=== PATIENT | female | born 1995 | race African-American/Black ===

== ENCOUNTER 2017-01-02 16:55 | Emergency (ER) | payer OTHER | END 2017-01-02 17:24 | disposition home or self-care (01) | LOC: FER 16:55 | DX: M79.605 Pain in left leg (principal); M79.604 Pain in right leg; G89.29 Other chronic pain; J44.9 Chronic obstructive pulmonary disease, unspecified; K21.9 Gastro-esophageal reflux disease without esophagitis; G62.9 Polyneuropathy, unspecified; Z88.0 Allergy status to penicillin; Z88.1 Allergy status to other antibiotic agents; Z91.040 Latex allergy status; Z89.612 Acquired absence of left leg above knee; Z89.611 Acquired absence of right leg above knee | CPT/HCPCS: J1170 ==

== ENCOUNTER 2021-04-22 10:52 | Emergency (ER) | payer MEDICARE ==
[~2021-04-22 10:52] MED LIST: ATARAX25 MG PO; BACTRIM DS TAB1 EACH PO; CRESTOR10 MG PO; KEFLEX500 MG PO; LEVAQUIN500 MG PO; LYRICA 50MG CAP50 MG PO; MEDROL 4MG DOSEP4 MG PO; MINIPRESS1 MG PO; ROZEREM8 MG PO; SINGULAIR10 MG PO; SMZ/TMP; SYNTHROID25 MCG PO; VENTOLIN HFA IN18 GM INH; ZOFRAN4 MG PO; ZOLOFT50 MG PO; ZPAK PO; [UNRECOGNIZED DRUG - OTHER]
== END 2021-04-22 12:13 | disposition home or self-care (01) ==
LOC: FER 10:52
DX: S06.0X9A Concussion with loss of consciousness of unspecified duration, initial encounter (principal); I10 Essential (primary) hypertension; F17.210 Nicotine dependence, cigarettes, uncomplicated; W06.XXXA Fall from bed, initial encounter; Y92.009 Unspecified place in unspecified non-institutional (private) residence as the place of occurrence of the external cause
CPT/HCPCS: 70450; 72125; 96372; J0780; J1885

== ENCOUNTER 2021-07-03 13:19 | Emergency (ER) | payer OTHER, MEDICARE ==
[2021-07-03 14:31] LABS: BASOPHIL 1.2 % (0-2); EOSINOPHIL 2.5 % (0-5); HCT 41.7 % (37.0-47.0); HGB 14.3 g/dl (12.5-16.0); LYMPHOCYTE 27.6 % (15-48); MCH 29.5 pg (25.0-31.0); MCHC 34.3 g/dL (32.0-36.0); MCV 86.2 fL (78.0-100.0); MONOCYTE 11.4 % (0-12); MPV 9.9 fL (6.0-9.5); NEUTROPHIL 56.4 % (41-80); NRBC 0; PLT 317 K/uL (150-400); RBC 4.84 M/uL (4.20-5.40); RDW 16.2 % (11.5-14.0); WBC 6.9 K/uL (4.0-10.5)
[2021-07-03 14:43] LABS: ALBUMIN 3.2 g/dL (3.4-5.0); BILIRUBIN - TOTAL 0.3 mg/dL (0.2-1.0); BUN/CREAT RATIO (CALC) 13.3 RATIO; CREATININE 1.05 mg/dL (0.51-0.95); GLOBULIN (CALCULATION) 3.6 g/dL; POTASSIUM 4.6 mmol/L (3.5-5.1); TOTAL PROTEIN 6.8 g/dL (6.4-8.2)
[2021-07-03 15:31] LABS: BILIRUBIN NEGATIVE (NEGATIVE); BLOOD NEGATIVE Ery/uL (NEGATIVE); CLARITY CLEAR (CLEAR); COLOR YELLOW (YELLOW); GLUCOSE (U) NORMAL (NORMAL); LEUKOCYTES NEGATIVE Leu/uL (NEGATIVE); NITRITE NEGATIVE (NEGATIVE); PROTEIN NEGATIVE (NEGATIVE); SPECIFIC GRAVITY 1.015 (1.001-1.030); UROBILINOGEN 0.2 mg/dL (0.2-1.0); pH 7.5 (5.0-9.0)
[2021-07-03 18:17] LABS: CORONAVIRUS 2019 SARS-COV-2 NEGATIVE (NEGATIVE); INFLUENZA A NAA NEGATIVE (NEGATIVE)
[2021-07-03] MEDS ORDERED: MEDROL 4MG DOSEP4 MG PO (18:27)
[2021-07-03] MEDS ORDERED: AZITHROMYCIN250 MG PO (18:27)
[2021-07-03] MEDS ORDERED: ZOFRAN4 M1 PO (18:27)
== END 2021-07-03 18:59 | disposition home or self-care (01) ==
LOC: FER 13:19
PROVIDERS: Nurse Practitioner Family
DX: R10.84 Generalized abdominal pain (principal); R11.2 Nausea with vomiting, unspecified; J90 Pleural effusion, not elsewhere classified; Z20.822 Contact with and (suspected) exposure to COVID-19; F17.210 Nicotine dependence, cigarettes, uncomplicated; Z88.0 Allergy status to penicillin; Z91.040 Latex allergy status
CPT/HCPCS: 36415; 80053; 81003; 85025; J2270; J2405; J2930; J7030; U0002

== ENCOUNTER 2021-10-05 09:09 | Emergency (ER) | payer MEDICARE ==
[~2021-10-05 09:09] MED LIST changes: +AZITHROMYCIN250 MG PO; +ZOFRAN4 M1 PO
[2021-10-05 10:16] LABS: CORONAVIRUS 2019 SARS-COV-2 NEGATIVE (NEGATIVE); INFLUENZA A NAA NEGATIVE (NEGATIVE)
[2021-10-05] MEDS ORDERED: AZITHROMYCIN250 MG PO (10:27)
[2021-10-05] MEDS ORDERED: PREDNISONE 20MG20 MG PO (10:27)
== END 2021-10-05 10:45 | disposition home or self-care (01) ==
LOC: FER 09:09
PROVIDERS: Emergency Medicine
DX: J45.901 Unspecified asthma with (acute) exacerbation (principal); I10 Essential (primary) hypertension; F17.200 Nicotine dependence, unspecified, uncomplicated; Z20.822 Contact with and (suspected) exposure to COVID-19; Z88.0 Allergy status to penicillin; Z88.1 Allergy status to other antibiotic agents; Z91.040 Latex allergy status
CPT/HCPCS: 71045; 99283; U0002

== ENCOUNTER 2021-11-20 12:42 | Emergency (ER) | payer SELFPAY ==
[~2021-11-20 12:42] MED LIST changes: +PREDNISONE 20MG20 MG PO
[2021-11-20] MEDS ORDERED: BACTRIM DS TAB1 EACH PO (13:13)
== END 2021-11-20 19:27 | disposition home or self-care (01) ==
LOC: FER 12:42
DX: S61.212A Laceration without foreign body of right middle finger without damage to nail, initial encounter (principal); I10 Essential (primary) hypertension; Z88.0 Allergy status to penicillin; Z91.040 Latex allergy status; W26.8XXA Contact with other sharp object(s), not elsewhere classified, initial encounter; Y92.009 Unspecified place in unspecified non-institutional (private) residence as the place of occurrence of the external cause

== ENCOUNTER 2021-12-10 01:27 | Emergency (ER) | payer OTHER, MEDICARE ==
[2021-12-10 02:02] LABS: EOSINOPHIL 2.3 % (0-5); HCT 42.1 % (37.0-47.0); HGB 14.5 g/dl (12.5-16.0); MCH 29.8 pg (25.0-31.0); MCHC 34.4 g/dL (32.0-36.0); MCV 86.4 fL (78.0-100.0); MONOCYTE 9.3 % (0-12); NRBC 0; PLT 311 K/uL (150-400); RBC 4.87 M/uL (4.20-5.40); RDW 15.8 % (11.5-14.0); WBC 9.2 K/uL (4.0-10.5)
[2021-12-10 02:25] LABS: ALBUMIN 3.6 g/dL (3.4-5.0); BILIRUBIN - TOTAL 0.3 mg/dL (0.2-1.0); BUN/CREAT RATIO (CALC) 16.5 RATIO; CREATININE 1.09 mg/dL (0.51-0.95); POTASSIUM 3.5 mmol/L (3.5-5.1); TOTAL PROTEIN 7.6 g/dL (6.4-8.2)
== END 2021-12-10 03:40 | disposition home or self-care (01) ==
LOC: FER 01:27
PROVIDERS: Emergency Medicine
DX: R06.00 Dyspnea, unspecified (principal); R00.0 Tachycardia, unspecified; I10 Essential (primary) hypertension; F17.200 Nicotine dependence, unspecified, uncomplicated; Z20.822 Contact with and (suspected) exposure to COVID-19; Z87.09 Personal history of other diseases of the respiratory system; Z82.49 Family history of ischemic heart disease and other diseases of the circulatory system; Z79.899 Other long term (current) drug therapy; Z88.0 Allergy status to penicillin; Z91.040 Latex allergy status
CPT/HCPCS: 36415; 71045; 80053; 84484; 85025; 85379; 93005; 94640; J1100; J7030; U0002